=== PATIENT | male | born 1995 | race Two or more races ===

== ENCOUNTER 2017-11-21 14:50 | Emergency (ER) | payer MEDICAID, OTHER ==
--- NOTE | 2017-11-21 15:42 | EDM.PDOC ---
ED HPI GENERAL MEDICAL PROBLEM - General Chief Complaint: Abdominal Pain Stated Complaint: L SIDE STOMACH PAIN Time Seen by Provider: 11/21/17 15:07 Source of Information: Reports: Patient History Limitations: Reports: No Limitations - History of Present Illness INITIAL COMMENTS - FREE TEXT/NARRATIVE: HISTORY AND PHYSICAL: History of present illness: Patient is a 22-year-old male who presents to the emergency room today with complaints of intermittent left upper abdominal pain 12-16 months. Patient states that he will intermittently get left upper abdominal pain after eating certain foods, describing it as a cramping pain. He states that he has not identified any specific foods that trigger this pain. Pain may last a few minutes to several hours and does have intermittent nausea. It is not associated with vomiting or diarrhea. Denies noting any blood in his stools. Denies any dysuria. Has no urinary or bowel complaints or concerns. Review of systems: As per history of present illness and below otherwise all systems reviewed and negative. Past medical history: As per history of present illness and as reviewed below otherwise noncontributory. Surgical history: As per history of present illness and as reviewed below otherwise noncontributory. Social history: No reported history of drug or alcohol abuse. Family history: As per history of present illness and as reviewed below otherwise noncontributory. Physical exam: General: Well-developed and well-nourished 22-year-old male. Alert and oriented. Nontoxic appearing and in no acute distress. HEENT: Atraumatic, normocephalic, pupils reactive, negative for conjunctival pallor or scleral icterus, mucous membranes moist, throat clear, neck supple, nontender, trachea midline. Lungs: Clear to auscultation, breath sounds equal bilaterally, chest nontender. Heart: S1S2, regular rate and rhythm Abdomen: Soft, nondistended, nontender. Negative for masses or hepatosplenomegaly. Negative for costovertebral tenderness. Pelvis: Stable nontender. Genitourinary: Deferred. Rectal: Deferred. Extremities: Atraumatic, negative for cords or calf pain. Neurovascular unremarkable. Neuro: Awake, alert, oriented. Cranial nerves II through XII unremarkable. Cerebellum unremarkable. Motor and sensory unremarkable throughout. Exam nonfocal. Upon discussing labs/testing with the patient, he states he does not have insurance and would like to do as "little as possible" as costs are an issue. When asked what his goal of being in the emergency room was today he states, "I was hoping to get some pain medications to take when this happens". Informed the patient that I'm unable to treat his symptoms if I don't know what is going on. He is agreeable to a CBC and CMP. He declines any further lab work or CT at this time. CBC and CMP are normal. Patient is pain-free. He is afebrile. Abdomen is soft and nontender. He reports that his bowel movements are regular. He has no concerns or complaints of any urinary issues. Patient's pain does sound related to his dietary choices. Encourage the patient to take a omeprazole daily to see if that helps. Do to costs and lack of insurance he did decline further lab or CT testing. I did educate him that if he does want further evaluation he should follow-up with a primary caregiver to investigate further if he continues to have this pain. Patient voices understanding and is agreeable to plan of care. He denies any further questions at this time. Diagnostics: CBC, CMP (declined H.pylori, UA, CT abd/pelvis) Therapeutics: [] Impression: Abdominal Pain Plan: 1. Please take an hria-phs-annjlaa PPI/acid attendant coin operated laundry such as Protonix or Omeprazole once daily, first thing in the morning. 2. [place] diet for the next 24-48 hours. Encourage fluids. 3. Your lab work was normal today. Due to cost/insurance purposes you decline further lab and CT testing today. If at some point you to want further evaluation of your intermittent abdominal pain, I encourage you to follow-up with the primary caregiver. As always you may return to the ED as needed and as discussed. Definitive disposition and diagnosis as appropriate pending reevaluation and review of above. Duration: Chronic Location: Reports: Abdomen Left Upper Abdominal Pain Score (Numeric/FACES): 6 - Related Data Allergies Allergy/AdvReac Type Severity Reaction Status Date / Time No Known Allergies Allergy Verified 11/21/17 15:51 Home Meds: Home Meds . [No Known Home Meds] 11/21/17 [History] ED ROS GENERAL - Review of Systems Review Of Systems: ROS reveals no pertinent complaints other than HPI. ED EXAM, GI/ABD - Physical Exam Exam: See Below (See dictation) Course - Vital Signs Last Recorded V/S: Last Vital Signs Temp 99.2 F 11/21/17 15:48 Pulse 74 11/21/17 15:48 Resp 18 11/21/17 15:48 BP 109/66 11/21/17 15:48 Pulse Ox 99 11/21/17 15:48 - Orders/Labs/Meds Labs: Laboratory Tests 11/21/17 11/21/17 Range/Units 15:48 15:48 WBC 6.62 (4.0-11.0) K/uL RBC 4.68 (4.50-5.90) M/uL Hgb 14.2 (13.0-17.0) g/dL Hct 41.9 (38.0-50.0) % MCV 89.5 (80.0-98.0) fL MCH 30.3 (27.0-32.0) pg MCHC 33.9 (31.0-37.0) g/dL RDW Std Deviation 44.9 (28.0-62.0) fl RDW Coeff of [place] 14 (11.0-15.0) % Plt Count 249 (150-400) K/uL MPV 9.10 (7.40-12.00) fL Neut % (Auto) 53.4 (48.0-80.0) % Lymph % (Auto) 37.6 (16.0-40.0) % [place] % (Auto) 7.7 (0.0-15.0) % Eos % (Auto) 1.1 (0.0-7.0) % Baso % (Auto) 0.2 (0.0-1.5) % Neut # (Auto) 3.5 (1.4-5.7) K/uL Lymph # (Auto) 2.5 H (0.6-2.4) K/uL [place] # (Auto) 0.5 (0.0-0.8) K/uL Eos # (Auto) 0.1 (0.0-0.7) K/uL Baso # (Auto) 0.0 (0.0-0.1) K/uL Nucleated RBC % 0.0 /100WBC Nucleated RBCs # 0 K/uL Sodium 139 (136-146) mmol/L Potassium 3.9 (3.5-5.1) mmol/L Chloride 105 (98-110) mmol/L Carbon Dioxide 25 (21-31) mmol/L BUN 15 (6.0-23.0) mg/dL Creatinine 0.9 (0.6-1.5) mg/dL Est Cr Clr Drug Dosing 136.21 mL/min Estimated GFR (MDRD) > 60.0 ml/min Glucose 96 (60-110) mg/dL Calcium 9.4 (8.8-10.8) mg/dL Total Bilirubin 0.4 (0.1-1.5) mg/dL AST 19 (5-40) IU/L ALT 18 (8-54) IU/L Alkaline Phosphatase 90 (40-150) Total Protein 7.1 (6.0-8.0) g/dL Albumin 4.5 (3.5-5.0) g/dL Globulin 2.6 (2.0-3.5) g/dL Albumin/Globulin Ratio 1.7 (1.3-2.8) Departure - Departure Time of Disposition: 17:01 Disposition: Home, Self-Care 01 Clinical Impression: Abdominal pain Qualifiers: Abdominal location: generalized Qualified Code(s): R10.84 - Generalized abdominal pain - Discharge Information Referrals: PCP,None [Primary Care Provider] - Forms: ED Department Discharge Additional Instructions: My general discharge The following information is given to patients seen in the emergency department who are being discharged to home. This information is to outline your options for follow-up care. We provide all patients seen in our emergency department with a follow-up referral. The need for follow-up, as well as the timing and circumstances, are variable depending upon the specifics of your emergency department visit. If you don't have a primary care physician on staff, we will provide you with a referral. We always advise you to contact your personal physician following an emergency department visit to inform them of the circumstance of the visit and for follow-up with them and/or the need for any referrals to a consulting specialist. The emergency department will also refer you to a specialist when appropriate. This referral assures that you have the opportunity for follow-up care with a specialist. All of these measure are taken in an effort to provide you with optimal care, which includes your follow-up. Under all circumstances we always encourage you to contact your private physician who remains a resource for coordinating your care. When calling for follow-up care, please make the office aware that this follow-up is from your recent emergency room visit. If for any reason you are refused follow-up, please contact the [facility] Emergency Department at and asked to speak to the emergency department charge nurse. [facility] [address] [place] [id number] 1. Please take an srje-sjs-[id number] PPI/acid attendant coin operated laundry such as Protonix or Omeprazole once daily, first thing in the morning. 2. [place] diet for the next 24-48 hours. Encourage fluids. 3. Your lab work was normal today. Due to cost/insurance purposes you decline further lab and CT testing today. If at some point you to want further evaluation of your intermittent abdominal pain, I encourage you to follow-up with the primary caregiver. As always you may return to the ED as needed and as discussed.
[2017-11-21 16:24] LABS: CHLORIDE,CL 105 mmol/L (98-110); SODIUM,NA 139 mmol/L (136-146)
== END 2017-11-21 17:10 | disposition home or self-care (01) ==
LOC: MW.ED 14:50
DX: R10.12 Left upper quadrant pain (principal)
CPT/HCPCS: 36415; 80053; 85025; 99284